=== PATIENT | female | born 1945 | race Caucasian/White ===

== ENCOUNTER → 2018-08-31 11:34 | Outpatient (CLI) | payer OTHER, SELFPAY ==
--- NOTE | 2018-08-31 | DI.MG.S_ITS ---
BILATERAL DIGITAL SCREENING MAMMOGRAM 3D/2D WITH CAD: 08/31/2018 CLINICAL: Routine screening. Comparison is made to exams dated: 09/03/2017 mammogram, 08/22/2017 mammogram, and 07/15/2016 mammogram - [facility]. There are scattered fibroglandular elements in both breasts. Current study was also evaluated with a Computer Aided Detection (CAD) system. No significant masses, calcifications, or other findings are seen in either breast. There has been no significant interval change. IMPRESSION: NEGATIVE There is no mammographic evidence of malignancy. A 1 year screening mammogram is recommended. This exam was interpreted at Station ID: [id number]. NOTE: For mammograms, a report in lay terms will be sent to the patient. Approximately 15% of breast malignancies will not be visualized mammographically. In the management of a palpable breast mass, a negative mammogram must not discourage biopsy of a clinically suspicious lesion. Electronically Signed By: Ino thompson/wolf:09/01/2018 09:52:06 letter sent: Normal Exam ACR BI-RADS Category 1: Negative 3341F
== END ==
PROVIDERS: PCP Family Medicine; Visit Provider Family Medicine
DX: Z12.31 Encounter for screening mammogram for malignant neoplasm of breast (principal)
CPT/HCPCS: 77063; 77067

== ENCOUNTER → 2019-09-16 08:16 | Outpatient (CLI) | payer OTHER, SELFPAY ==
--- NOTE | 2019-09-16 | DI.MG.S_ITS ---
BILATERAL DIGITAL SCREENING MAMMOGRAM 3D/2D WITH CAD: 09/16/2019 CLINICAL: Routine screening. Comparison is made to exams dated: 08/31/2018 mammogram, 08/22/2017 mammogram, 07/15/2016 mammogram - [facility], 01/26/2011 mammogram - [facility], 07/03/2015 mammogram, and 09/03/2017 mammogram - [facility]. There are scattered fibroglandular elements in both breasts. Current study was also evaluated with a Computer Aided Detection (CAD) system. There is a mole marker on both breasts. No significant masses, calcifications, or other findings are seen in either breast. There has been no significant interval change. IMPRESSION: NEGATIVE There is no mammographic evidence of malignancy. A 1 year screening mammogram is recommended. This exam was interpreted at Station ID: [id number]. NOTE: For mammograms, a report in lay terms will be sent to the patient. Approximately 15% of breast malignancies will not be visualized mammographically. In the management of a palpable breast mass, a negative mammogram must not discourage biopsy of a clinically suspicious lesion. Electronically Signed By: Ino thompson/wolf:09/16/2019 16:23:07 letter sent: Normal Exam ACR BI-RADS Category 1: Negative 3341F
== END ==
PROVIDERS: PCP Family Medicine; Visit Provider Family Medicine
DX: Z12.31 Encounter for screening mammogram for malignant neoplasm of breast (principal)
CPT/HCPCS: 77063; 77067

== ENCOUNTER → 2020-03-29 09:53 | Outpatient (CLI) | payer MEDICARE, SELFPAY ==
[2020-03-29 11:39] LABS: Cholesterol 185 mg/dL (140-199); Glucose 90 mg/dL (80-110); HDL Cholesterol 69 mg/dL (40-60); LDL Cholesterol Calculated 107 mg/dL (<100); Triglycerides 43 mg/dL (35-150)
== END ==
PROVIDERS: PCP Family Medicine; Referring Provider Family Medicine; Visit Provider Family Medicine
DX: Z13.220 Encounter for screening for lipoid disorders (principal); Z13.1 Encounter for screening for diabetes mellitus
CPT/HCPCS: 36415; 80061; 82947

== ENCOUNTER → 2020-09-23 10:31 | Outpatient (CLI) | payer MEDICARE, SELFPAY ==
--- NOTE | 2020-09-23 | DI.MG.S_ITS ---
BILATERAL DIGITAL SCREENING MAMMOGRAM 3D/2D WITH CAD: 09/23/2020 CLINICAL: Routine screening. Comparison is made to exams dated: 09/16/2019 mammogram, 08/31/2018 mammogram, and 08/22/2017 mammogram - [facility]. There are scattered fibroglandular elements in both breasts. Current study was also evaluated with a Computer Aided Detection (CAD) system. No significant masses, calcifications, or other findings are seen in either breast. There has been no significant interval change. IMPRESSION: NEGATIVE There is no mammographic evidence of malignancy. A 1 year screening mammogram is recommended. This exam was interpreted at Station ID: [id number]. NOTE: For mammograms, a report in lay terms will be sent to the patient. Approximately 15% of breast malignancies will not be visualized mammographically. In the management of a palpable breast mass, a negative mammogram must not discourage biopsy of a clinically suspicious lesion. Electronically Signed By: Rusty pena/wolf:09/25/2020 13:45:04 letter sent: Normal Exam ACR BI-RADS Category 1: Negative 3341F
== END ==
PROVIDERS: PCP Family Medicine; Referring Provider Family Medicine; Visit Provider Family Medicine
DX: Z12.31 Encounter for screening mammogram for malignant neoplasm of breast (principal)
CPT/HCPCS: 77063; 77067

== ENCOUNTER → 2021-10-20 09:58 | Outpatient (CLI) | payer MEDICARE, SELFPAY ==
--- NOTE | 2021-10-20 10:19 | DI.MG.S_ITS ---
Procedure: MM screening mammo BI BILATERAL DIGITAL SCREENING MAMMOGRAM 3D/2D WITH CAD: 10/20/2021 CLINICAL: Routine screening. Comparison is made to exams dated: 09/23/2020 mammogram, 09/16/2019 mammogram, and 08/31/2018 mammogram - [facility]. There are scattered fibroglandular elements in both breasts. Current study was also evaluated with a Computer Aided Detection (CAD) system. No significant masses, calcifications, or other findings are seen in either breast. There has been no significant interval change. IMPRESSION: NEGATIVE There is no mammographic evidence of malignancy. A 1 year screening mammogram is recommended. This exam was interpreted at Station ID: [id number]. NOTE: For mammograms, a report in lay terms will be sent to the patient. Approximately 15% of breast malignancies will not be visualized mammographically. In the management of a palpable breast mass, a negative mammogram must not discourage biopsy of a clinically suspicious lesion. Electronically Signed By: Rusty pena/wolf:10/22/2021 09:38:20 letter sent: Normal Exam ACR BI-RADS Category 1: Negative 3341F
== END ==
PROVIDERS: PCP Family Medicine; Referring Provider Family Medicine; Visit Provider Family Medicine
DX: Z12.31 Encounter for screening mammogram for malignant neoplasm of breast (principal)
CPT/HCPCS: 77063; 77067

== ENCOUNTER → 2022-04-06 12:00 | Outpatient (CLI) | payer MEDICARE, SELFPAY | PROVIDERS: PCP Family Medicine; Visit Provider Physician Assistant | DX: N39.0 Urinary tract infection, site not specified (principal) | CPT/HCPCS: 87077; 87086; 87186 ==

== ENCOUNTER 2022-04-15 14:26 | Emergency (ER) | payer MEDICARE, SELFPAY ==
[2022-04-15] VITALS (8 sets, daily range): BP systolic 153–187; BP diastolic 58–87; PULSE 74–86; RESP 16–30; TEMP 36.9; O2SAT 97–100; BMI 22.8
--- NOTE | 2022-04-15 15:07 | DI.CT.S_ITS ---
PROCEDURE: CT HEAD/BRAIN WO CON INDICATIONS: fall TECHNIQUE: Noncontrast 4.5 mm thick angled axial sections acquired from the foramen magnum to the vertex, with coronal and sagittal reformats. For radiation dose reduction, the following was used: automated exposure control, adjustment of mA and/or kV according to patient size. COMPARISON: [facility], CT, CT CERVICAL SPINE WO CON, 04/15/2022, 15:32. FINDINGS: Image quality: Excellent. CSF spaces: Basal cisterns are patent. No extra-axial fluid collections. Ventricles are normal in size and shape. Brain: No midline shift. No intracranial masses or hemorrhage. No area of hypodensity in a large vascular distribution to suggest acute infarction. Periventricular hypodensity consistent with chronic microvascular ischemic change. Age-related parenchymal loss. Skull and face: Calvarium and visualized facial bones are intact, without suspicious lesions. Sinuses: Visualized sinuses and mastoids are clear. IMPRESSION: No acute intracranial abnormality. Dictated by: Chirag Solares M.D. on 04/15/2022 at 16:00 Approved by: Chirag Solares M.D. on 04/15/2022 at 16:03
--- NOTE | 2022-04-15 15:11 | DI.CT.S_ITS ---
PROCEDURE: CT CERVICAL SPINE WO CON INDICATIONS: fall TECHNIQUE: Noncontrast 3 mm thick sections acquired from the skull base to the T4 level. Sagittal and coronal reformats were then constructed. For radiation dose reduction, the following was used: automated exposure control, adjustment of mA and/or kV according to patient size. COMPARISON: None. FINDINGS: Image quality: Fair. Motion artifact. Bones: Possible upper sternal fracture partially visualized, (5/55). Minimal vertebral body height loss at T1. No dislocations. Multilevel loss of intervertebral disc space height. Small vertebral body osteophytes. Visualized superior ribs are intact. Soft tissues: Prevertebral soft tissues are normal in thickness. No paravertebral hematomas. No apical pneumothoraces. Mild biapical opacity. Mild carotid bulb atherosclerotic calcifications. Moderate aortic arch calcifications. IMPRESSION: 1. Minimal height loss at T1. Indeterminate chronicity. 2. Suspect fracture at the upper sternum partially visualized. Recommend a CT chest for further evaluation if clinically indicated. 3. Mild biapical opacity. This could be due to pleural apical scarring or infectious/inflammatory process such as pneumonia. Dictated by: Chirag Solares M.D. on 04/15/2022 at 16:03 Approved by: Chirag Solares M.D. on 04/15/2022 at 16:10
--- NOTE | 2022-04-15 16:24 | DI.CT.S_ITS ---
PROCEDURE: CT CHEST WO CON INDICATIONS: fall. fx sternum suspected TECHNIQUE: Noncontrast 5 mm thick sections acquired from the pulmonary apices to the posterior costophrenic angles. 1 mm lung window, 5 mm thick coronal and sagittal and 7 mm axial MIP reformats were then acquired. For radiation dose reduction, the following was used: automated exposure control, adjustment of mA and/or kV according to patient size. COMPARISON: None. FINDINGS: Image quality: Excellent. Lungs and pleura: Consolidation or atelectasis is present at the left lung base. There is scarring at the bilateral apices. No pleural effusion or pneumothorax. Mediastinum: Heart size is normal. No pericardial effusion. No mediastinal adenopathy by size criteria. Thoracic aorta and central pulmonary arteries are normal in size. Scattered atheromatous calcifications are present within the aortic arch. . Esophagus is normal in caliber. No hiatal hernia. Bones and chest wall: There is a comminuted fracture through the superior aspect of the sternum. No retrosternal hematoma. Superior endplate depression is present at T1 and T3. No other vertebral body compression fractures. No axillary or supraclavicular adenopathy by size criteria. Thyroid gland is unremarkable . Abdomen: Visualized upper abdominal solid organs and bowel loops appear normal in the absence of contrast. IMPRESSION: 1. Comminuted displaced sternal fracture. No retrosternal hematoma. 2. Consolidation at the left lung base which may represent atelectasis, aspiration, or infection. Short interval follow-up is recommended to exclude underlying neoplasm. 3. Superior endplate compression deformities at T1 and T3. The acuity of these deformities are unknown without prior comparison. If there is high clinical suspicion for acute fracture and further characterization is warranted, MRI of this region could be used to evaluate for marrow edema in the acute or subacute setting. Dictated by: Jordana Bliss M.D. on 04/15/2022 at 16:43 Approved by: Jordana Bliss M.D. on 04/15/2022 at 16:47
--- NOTE | 2022-04-15 16:25 | PC.NURSE ---
Dr. Garcia cleared c-spine
[2022-04-15 17:39] LABS: Add Manual Diff / Slide Review NO; Basophils Absolute Auto 0 /uL (0-100); Basophils Percent Auto 0.5 % (0-2); Eosinophils Absolute Auto 100 /uL (0-450); Eosinophils Percent Auto 1.2 % (2-4); Hematocrit 38.9 % (36-46); Hemoglobin 13.3 g/dL (12.0-16.0); Lymphocytes Absolute Auto 1100 /uL (1100-4500); Lymphocytes Percent Auto 18.3 % (25-40); Mean Corpuscular HGB Conc 34.1 % (30-36); Mean Corpuscular Hemoglobin 31.7 PG (26-34); Mean Corpuscular Volume 93.1 fL (80-100); Monocytes Absolute Auto 800 /uL (0-900); Monocytes Percent Auto 13.5 % (3-14); Neutrophils Absolute Auto 4100 /uL (1500-7000); Neutrophils Percent Auto 66.5 % (50-75); Platelet Count 200 X10^3/uL (150-400); Red Blood Cell Count 4.18 X10^6/uL (4.0-5.2); Red Cell Distribution Width 13.7 % (11.6-14.8); White Blood Cell Count 6.2 X10^3/uL (4.5-11.0)
[2022-04-15 17:44] LABS: Alanine Aminotransferase 39 IU/L (<35); Albumin 4.3 g/dL (3.5-5.0); Albumin Globulin Ratio 1.5 (1.0-2.8); Alkaline Phosphatase 73 U/L (38-126); Aspartate Aminotransferase 62 IU/L (14-36); BUN Creatinine Ratio 38.6 (6-22); Bilirubin Total 0.7 mg/dL (0.2-1.3); Blood Urea Nitrogen 22 mg/dL (7-17); Calcium 9.6 mg/dL (8.4-10.2); Carbon Dioxide 26 mmol/L (22-32); Chloride 105 mmol/L (98-107); Creatine Kinase 401 U/L (30-135); Estimated Glomerular Filt Rate > 60 mL/min (>60); Globulin 2.8 g/dL (1.7-4.1); Glucose 100 mg/dL (80-110); HEMOLYSIS < 15 (0-50); Lipase 38 U/L (23-300); Sodium 136 mmol/L (137-145); Total Protein 7.1 g/dL (6.3-8.2)
[2022-04-15 17:57] LABS: Troponin I < 0.012 ng/mL (0.01-0.034)
[2022-04-15 17:59] LABS: CKMB % Relative Index 0.6 % (1.5-5.0); Creatine Kinase MB 2.39 ng/mL (<2.37)
--- NOTE | 2022-04-15 18:35 | ED_ITS ---
HPI - Fall General Chief Complaint: Fall Stated Complaint: BACK PAIN PT. FELL FLIGHT OF STAIRS Time Seen by Provider: 04/15/22 16:27 Source: patient Mode of arrival: Ambulatory Limitations: no limitations History of Present Illness HPI Narrative: This is a 76-year-old female comes emergency department who is on medication for cholesterol and hypertension. No anticoagulants. Patient states on Friday, April 12 she was walking down the stairs of her friend's boat which has a large circular staircase tripped and fell down 3 stairs onto a landing and fell down 2 more stairs onto an additional landing striking her chest on the railing. Patient states she thinks she also twisted and hit her head and neck on the wall. Patient states she spent the next 2 days in bed. She states she did not have any loss of consciousness she was stunned immediately afterwards. She had some nausea but no vomiting she has some pain in her lower neck, she has quite a bit of pain in her sternum which he states has gotten better but is still quite intense with any kind of movement. She denies any pelvic, leg or lower extre mity injuries or injuries to her upper extremities. She states it is painful to take a deep breath. She has not been coughing anything up. She denies any vomiting. No GI or urinary symptoms otherwise. No numbness, tingling or weakness. Patient has been taking ibuprofen with minimal improvement. She is had her appendix removed. Denies other surgeries. Patient has had pneumonia as a child about 15 years ago as it was noted there was some opacification on her chest CT. No tobacco, she has an alcoholic drink most nights, no illicit. Her primary care is Dr. Villegas. Related Data Home Medications Medication Instructions Recorded Confirmed Fish Oil ##0 08/07/16 04/27/21 VITAMIN D (Vitamin D2) ##0 08/07/16 04/27/21 Previous Rx's Medication Instructions Recorded simvastatin 40 mg tablet See Rx Instructions .Route 02/05/22 .COMPLEX #90 tabs hydrocodone 5 mg-acetaminophen 325 1 tab PO QID PRN pain #20 tabs 04/15/22 mg tablet Allergies Allergy/AdvReac Type Severity Reaction Status Date / Time No Known Drug Allergies Allergy Verified 04/15/22 15:06 Review of Systems Review of Systems ROS Unobtainable: All systems reviewed & are unremarkable except as noted in HPI and below Patient History Medical History Cataract Chicken pox (~1950) Hyperlipidemia Measles (~1949) Mumps (~1951) Pectus excavatum (09/1954) Pure hypercholesterolemia Surgical History Anesthesia History of colonoscopy (03/24/13) History of left cataract surgery (08/19/14) History of left inguinal hernia repair (09/1995) History of orthopedic surgery (2000) History of right cataract surgery (08/31/14) History of right inguinal hernia repair (09/2011) History of surgery (09/1954) History of umbilical hernia repair (02/2010) Status post appendectomy (02/05/03) Status post tonsillectomy and adenoidectomy (09/1944) Family History Father High cholesterol Lung cancer Cancer Mother Age: 97 Dementia Hypertension High cholesterol Grandfather Heart attack Sister Age: 73 High cholesterol Sister Age: 71 High cholesterol Sister Age: 70 High cholesterol Sister Age: 64 High cholesterol Grandmother Dementia Grandfather Heart attack Grandmother Cancer Pancreatic cancer Social History marital status: number of children: 2 household members: spouse lives independently: Yes caregiver/support person: No housing: house Smoking Status: Former smoker second hand exposure: No alcohol intake: current substance use type: does not use Smoking Status: Former smoker alcohol intake frequency: 0-2 drinks per day Alcohol type: wine Substance Use Type: does not use Exam Narrative Exam Narrative: GEN: Patient appears in mild distress. HEAD: No evidence of trauma, no raccoon/Daugherty sign. NECK: Nontender, painless range of motion, trachea midline Negative Nexus criteria, there is no midline line tenderness, no distracting injury, no altered mental status, neuro deficit, recent EtOH. EYES: PERRLA, EOMI ENT: External inspection normal, trachea is midline, TM's are normal no hemotypanum, Nares are clear, no septal hematoma, no dental or oral injury, airway is normal and with normal occlusion, No bony tenderness RESP: Chest is tender anteriorly, no ecchymosis, no obvious deformity but patient does appear slightly swollen and has symmetric movement, no ecchymosis, breath sounds are normal no crackles, wheezes or rales CVS: Heart sounds are normal, no murmur noted, No JVD. ABG/GI: Nontender, soft, normal bowel sounds, no distention, no organomegaly, pelvic rock is negative NEURO: Oriented AOx3, neuro is grossly intact, sensation and motor is normal all 4 extremities moving, cranial nerves II through XII are intact, GCS is 15 PSYCH: Normal mood and affect SKIN: Intact, warm and dry, no crepitus and without decubitus BACK: No CVA tenderness, no vertebral tenderness, no step-off's, no crepitus EXT: Atraumatic, hips are nontender, no pedal edema, normal color and temperature, normal range of motion of extremities with normal tendon exam, 2+ pulses in all four extremities Initial Vital Signs Initial Vital Signs: Vital Signs Temperature 98.4 F 04/15/22 15:01 Pulse Rate 86 04/15/22 15:01 Respiratory Rate 16 04/15/22 15:01 Blood Pressure 158/68 H 04/15/22 15:01 Pulse Oximetry 97 04/15/22 15:01 Oxygen Delivery Method 04/15/22 15:01 Scores GCS [place] coma scale eye opening: Spontaneous [place] coma scale verbal response: Orientated [place] coma scale motor response: Obey commands Matt coma scale total score: 15 Course Orders Ordered: ED Orders 04/15/22 15:07 CT head/brain wo con Stat 04/15/22 15:11 CT cervical spine wo con Stat 04/15/22 16:24 CT chest wo con Stat 04/15/22 16:36 EKG-12 Lead Stat 04/15/22 16:55 Complete Blood Count AUTO DIFF Stat Comprehensive Metabolic Panel Stat Lipase Stat Troponin & CK Cardiac Panel Stat Vital Signs Vital signs: Vital Signs - 8 hr 04/15/22 15:01 04/15/22 16:46 04/15/22 16:46 Temperature 98.4 F Pulse Rate 86 75 Respiratory Rate 16 20 Blood Pressure 158/68 H 180/79 H Pulse Oximetry 97 100 Oxygen Delivery Method Room Air 04/15/22 17:00 04/15/22 17:00 04/15/22 17:30 Temperature Pulse Rate 74 Respiratory Rate 16 Blood Pressure 163/58 H 153/70 H Pulse Oximetry 98 Oxygen Delivery Method 04/15/22 17:30 04/15/22 18:00 Temperature Pulse Rate 76 86 Respiratory Rate 16 20 Blood Pressure Pulse Oximetry 99 98 Oxygen Delivery Method - Fall Lab Data Result diagrams: 04/15/22 16:55 04/15/22 16:55 Labs: Lab Results 04/15/22 04/15/22 Range/Units 16:55 16:55 WBC 6.2 (4.5-11.0) X10^3/uL RBC 4.18 (4.0-5.2) X10^6/uL Hgb 13.3 (12.0-16.0) g/dL Hct 38.9 (36-46) % MCV 93.1 (80-100) fL MCH 31.7 (26-34) PG MCHC 34.1 (30-36) % RDW 13.7 (11.6-14.8) % Plt Count 200 (150-400) X10^3/uL Neut % (Auto) 66.5 (50-75) % Lymph % (Auto) 18.3 L (25-40) % [place] % (Auto) 13.5 (3-14) % Eos % (Auto) 1.2 L (2-4) % Baso % (Auto) 0.5 (0-2) % Neut # (Auto) 4100 (7199-5236) /uL Lymph # (Auto) 1100 (7526-6818) /uL [place] # (Auto) 800 (0-900) /uL Eos # (Auto) 100 (0-450) /uL Baso # (Auto) 0 (0-100) /uL Sodium 136 L (137-145) mmol/L Potassium 4.0 (3.4-5.1) mmol/L Chloride 105 (98-107) mmol/L Carbon Dioxide 26 (22-32) mmol/L BUN 22 H (7-17) mg/dL Creatinine 0.57 (0.52-1.04) mg/dL Estimated GFR > 60 (>60) mL/min BUN/Creatinine Ratio 38.6 H (6-22) Glucose 100 (80-110) mg/dL Calcium 9.6 (8.4-10.2) mg/dL Total Bilirubin 0.7 (0.2-1.3) mg/dL AST 62 H (14-36) IU/L ALT 39 H (<35) IU/L Alkaline Phosphatase 73 (38-126) U/L Total Creatine Kinase 401 H (30-135) U/L CK-MB (CK-2) 2.39 H (<2.37) ng/mL CK-MB (CK-2) Rel Index 0.6 L (1.5-5.0) % Troponin I < 0.012 (0.01-0.034) ng/mL Total Protein 7.1 (6.3-8.2) g/dL Albumin 4.3 (3.5-5.0) g/dL Globulin 2.8 (1.7-4.1) g/dL Albumin/Globulin Ratio 1.5 (1.0-2.8) Lipase 38 (23-300) U/L Imaging Data CT scan - head: Radiologist's Impression: Close Chest CT (Signed) Jordana Bliss - 04/15/[address] (Signed) Call,Chirag - 04/15/[address] (Signed) Call,Chirag - 04/15/22 Mammogram Screening (Signed) Rusty Pedersen - 10/20/21 Mammogram Screening (Signed) Rusty Pedersen - 09/23/20 Mammogram Screening (Signed) Ino De La Paz - 09/16/19 Mammogram Screening (Signed) Ino De La Paz - 08/31/18 Launch?[place] [address] CT Scan Report Signed Patient: Carrie Perry MR#: [id number] : 1945 Acct:[id number] Age/Sex: 76 / F Date of Service: 04/15/22 Loc: ED Accession Number: [id number] ?? Procedure: CT head/brain wo con Ordering Provider: Lidia Garcia D.O. PROCEDURE:? CT HEAD/BRAIN WO CON ? INDICATIONS:? fall ? TECHNIQUE:? Noncontrast 4.5 mm thick angled axial sections acquired from the foramen magnum to the vertex, with coronal and sagittal reformats.? For radiation dose reduction, the following was used:? automated exposure control, adjustment of mA and/or kV according to patient size.? ? COMPARISON:? [facility], CT, CT CERVICAL SPINE WO CON, 04/15/2022, 15:32. ? FINDINGS:? Image quality:? Excellent.? ? CSF spaces:? Basal cisterns are patent.? No extra-axial fluid collections.? Ventricles are normal in size and shape.? ? Brain:? No midline shift.? No intracranial masses or hemorrhage.? No area of hypodensity in a large vascular distribution to suggest acute infarction. Periventricular hypodensity consistent with chronic microvascular ischemic change. Age-related parenchymal loss. ? Skull and face:? Calvarium and visualized facial bones are intact, without suspicious lesions.? ? Sinuses:? Visualized sinuses and mastoids are clear.? ? IMPRESSION:? No acute intracranial abnormality. ? ? Dictated by: Chirag Solares M.D. on 04/15/2022 at 16:00 ? ? Approved by: Chirag Solares M.D. on 04/15/2022 at 16:03?? CT - cervical spine: Radiologist's Impression: Close Chest CT (Signed) Jordana Bliss - 04/15/[address] (Signed) Call,Chirag - 04/15/[address] (Signed) Call,Chirag - 04/15/22 Mammogram Screening (Signed) Rusty Pedersen - 10/20/21 Mammogram Screening (Signed) Rusty Pedersen - 09/23/20 Mammogram Screening (Signed) Ino De La Paz - 09/16/19 Mammogram Screening (Signed) Ino De La Paz - 08/31/18 Launch?[place] [address] CT Scan Report Signed Patient: Carrie Perry MR#: [id number] : 1945 Acct:[id number] Age/Sex: 76 / F Date of Service: 04/15/22 Loc: Accession Number: [id number] ?? Procedure: CT cervical spine wo con Ordering Provider: Lidia Garcia D.O. PROCEDURE:? CT CERVICAL SPINE WO CON ? INDICATIONS:? fall ? TECHNIQUE:? Noncontrast 3 mm thick sections acquired from the skull base to the T4 level.? Sagittal and coronal reformats were then constructed.? For radiation dose reduction, the following was used:? automated exposure control, adjustment of mA and/or kV according to patient size.? ? COMPARISON:? None. ? FINDINGS:? Image quality:? Fair.? Motion artifact.? ? Bones:? Possible upper sternal fracture partially visualized, ().? Minimal vertebral body height loss at T1.? No dislocations.? Multilevel loss of intervertebral disc space height.? Small vertebral body osteophytes.? Visualized superior ribs are intact.? ? Soft tissues:? Prevertebral soft tissues are normal in thickness.? No pa ravertebral hematomas.? No apical pneumothoraces.? Mild biapical opacity.? Mild carotid bulb atherosclerotic calcifications.? Moderate aortic arch calcifications.? ? ? IMPRESSION:? 1. Minimal height loss at T1.? Indeterminate chronicity.? ? 2. Suspect fracture at the upper sternum partially visualized.? Recommend a CT chest for further evaluation if clinically indicated. ? 3. Mild biapical opacity.? This could be due to pleural apical scarring or infectious/inflammatory process such as pneumonia. ? ? ? Dictated by: Chirag Solares M.D. on 04/15/2022 at 16:03 ? ? Approved by: Chirag Solares M.D. on 04/15/2022 at 16:10?? CT scan - chest: Radiologist's Impression: Close Chest CT (Signed) Jordana Bliss - 04/15/[address] (Signed) Chirag Solares - 04/15/[address] (Signed) Chirag Solares - 04/15/22 Mammogram Screening (Signed) Rusty Pedersen - 10/20/21 Mammogram Screening (Signed) Rusty Pedersen - 09/23/20 Mammogram Screening (Signed) Ino De La Paz - 09/16/19 Mammogram Screening (Signed) Ino De La Paz - 08/31/18 Launch?[address] [address] [address] Scan Report Signed Patient: Carrie Perry MR#: [id number] : 1945 Acct:[id number] Age/Sex: 76 / F Date of Service: 04/15/22 Loc: ED Accession Number: [id number] ?? Procedure: CT chest wo con Ordering Provider: Lidia Garcia D.O. PROCEDURE:? CT CHEST WO CON ? INDICATIONS:? fall. fx sternum suspected ? TECHNIQUE: Noncontrast 5 mm thick sections acquired from the pulmonary apices to the posterior costophrenic angles.? 1 mm lung window, 5 mm thick coronal and sagittal and 7 mm axial MIP reformats were then acquired.? For radiation dose reduction, the following was used:? automated exposure control, adjustment of mA and/or kV according to patient size.? ? COMPARISON:? None. ? FINDINGS:? Image quality:? Excellent.? ? Lungs and pleura:? Consolidation or atelectasis is present at the left lung base.? There is scarring at the bilateral apices.? No pleural effusion or pneumothorax. ? Mediastinum:? Heart size is normal.? No pericardial effusion.? No mediastinal adenopathy by size criteria.? Thoracic aorta and central pulmonary arteries are normal in size. Scattered atheromatous calcifications are present within the aortic arch. .? Esophagus is normal in caliber.? No hiatal hernia.? ? Bones and chest wall:? There is a comminuted fracture through the superior aspect of the sternum.? No retrosternal hematoma.? Superior endplate depression is present at T1 and T3.? No other vertebral body compression fractures.? No axillary or supraclavicular adenopathy by size criteria.? Thyroid gland is unremarkable .? ? Abdomen:? Visualized upper abdominal solid organs and bowel loops appear normal in the absence of contrast.? ? IMPRESSION:? ? 1. Comminuted displaced sternal fracture.? No retrosternal hematoma. ? 2. Consolidation at the left lung base which may represent atelectasis, aspiration, or infection.? Short interval follow-up is recommended to exclude underlying neoplasm. ? 3. Superior endplate compression deformities at T1 and T3.? The acuity of these deformities are unknown without prior comparison.? If there is high clinical suspicion for acute fracture and further characterization is warranted, MRI of this region could be used to evaluate for marrow edema in the acute or subacute setting.? ? ? Dictated by: Jordana Bliss M.D. on 04/15/2022 at 16:43 ? ? Approved by: Jordana Bliss M.D. on 04/15/2022 at 16:47?? ECG Data Attestation: I personally reviewed and interpreted this ECG as follows: Interpretation: NSR rate of 76, pr of 134, qrs 102, Qtc 436. Patient does not have any priors for comparison. MDM Narrative Medical decision making narrative: This is a 76-year-old female with a fall down stairs approximately 5-7 stairs or steps that landed on her sternum over the railing and hit her head and neck. This was [address] C-spine are negative and patient does not have any red flag symptoms or findings on her exam, she is quite tender in her sternum CT chest does show sternal fracture. She has been ambulating and improving in terms of pain but still quite tender since then. Patient is not on any anticoagulants. Plan for incentive spirometer, prescription for pain management which patient requests be sent to a mail service and follow-up with primary care for recheck. Discharge Plan Departure Patient Disposition: Home Clinical Impression: Sternal fracture, Closed compression fracture of thoracic vertebra, Fall Instructions: DI for Sternum Fracture Activity Restrictions/Additional Instructions: Follow up with your physician for recheck. You were found to have a sternal fracture today this will likely take 2-3 months to fully heal please follow-up with Dr. Villegas in the interim for recheck. You also have a compression fracture at T1 and T3. There is some possible scarring on your CT in the upper chest, please follow-up with your physician and discuss this they may repeat imaging in the next couple months if felt necessary. Please use incentive spirometer hourly while awake for the next month. As your pain resolves you do not have to use this as frequently. You can take ibuprofen up to 600 mg every 6 hours as needed and/or Tylenol up to a 1000 mg every 6 hours as needed for pain. If inadequate for your pain you can take [place] 1-2 tablets every 6 hours instead of Tylenol for pain. Your maximum amount of Tylenol or acetaminophen in 24 hours is 4000 mg. This medication can make you sleepy do not drive, perform hazardous activities or make any major decisions while taking it. This medication will make you cons tipated please take a stool softener once to twice daily until stools are soft and regular. Prescription sent to [facility] mail service. Please return for worsening chest pain, increasing shortness of breath, persistent vomiting, severe headaches, new numbness, tingling or weakness or rapidly worsening back or neck pain, passing out or other new or concerning symptoms. Prescriptions: New hydrocodone-acetaminophen 5-325 mg tablet 1 tab PO QID PRN (Reason: pain) Qty: 20 0RF No Action Fish Oil Qty: 0 VITAMIN D (Vitamin D2) Qty: 0 simvastatin 40 mg tablet See Rx Instructions .ROUTE .COMPLEX Qty: 90 0RF Dose Instruction: TAKE 1 TABLET BY MOUTH AT BEDTIME Rx Instructions: TAKE 1 TABLET BY MOUTH AT BEDTIME. Please make an appt with Dr. Villegas for March or April Referrals: Yandy Villegas MD [Primary Care Provider] - Visit Report Forms: Patient Portal/API
--- NOTE | 2022-04-15 19:09 | RT ---
PT INSTRUCTED ON PROPER I.S. USE FOR USE AT HOME.
--- NOTE | 2022-04-15 19:20 | PC.NURSE ---
Irving CHAVES and Santi instructed on IS use.
== END 2022-04-15 19:35 | disposition home or self-care (01) ==
PROVIDERS: Emergency Medicine; Emergency Provider Emergency Medicine; PCP Family Medicine
DX: S22.20XA Unspecified fracture of sternum, initial encounter for closed fracture (principal); S22.019A Unspecified fracture of first thoracic vertebra, initial encounter for closed fracture; S22.039A Unspecified fracture of third thoracic vertebra, initial encounter for closed fracture; W10.9XXA Fall (on) (from) unspecified stairs and steps, initial encounter; I10 Essential (primary) hypertension
CPT/HCPCS: 36415; 70450; 71250; 72125; 80053; 82550; 82553; 83690; 84484; 85025; 93005; 93010; 99283; 99284

== ENCOUNTER → 2022-07-22 11:36 | Outpatient (CLI) | payer MEDICARE, SELFPAY ==
[2022-07-22 12:49] LABS: Alanine Aminotransferase 26 IU/L (<35); Albumin 4.3 g/dL (3.5-5.0); Albumin Globulin Ratio 1.6 (1.0-2.8); Alkaline Phosphatase 60 U/L (38-126); Aspartate Aminotransferase 32 IU/L (14-36); BUN Creatinine Ratio 31.8 (6-22); Bilirubin Total 0.8 mg/dL (0.2-1.3); Blood Urea Nitrogen 21 mg/dL (7-17); Calcium 9.6 mg/dL (8.4-10.2); Carbon Dioxide 26 mmol/L (22-32); Chloride 103 mmol/L (98-107); Cholesterol 179 mg/dL (140-199); Estimated Glomerular Filt Rate > 60 mL/min (>60); Globulin 2.7 g/dL (1.7-4.1); Glucose 96 mg/dL (80-110); HDL Cholesterol 64 mg/dL (40-60); HEMOLYSIS < 15 (0-50); LDL Cholesterol Calculated 103 mg/dL (<100); Potassium 4.1 mmol/L (3.4-5.1); Sodium 139 mmol/L (137-145); Triglycerides 61 mg/dL (35-150)
== END ==
PROVIDERS: PCP Family Medicine; Referring Provider Family Medicine; Visit Provider Family Medicine
DX: E78.5 Hyperlipidemia, unspecified (principal)
CPT/HCPCS: 36415; 80053; 80061

== ENCOUNTER → 2022-07-29 10:08 | Outpatient (CLI) | payer MEDICARE, SELFPAY ==
--- NOTE | 2022-07-29 10:09 | DI.CT.S_ITS ---
PROCEDURE: CT CHEST WO CON INDICATIONS: T Spine Fracture/Follow Up Lung Consolidation TECHNIQUE: Noncontrast 5 mm thick sections acquired from the pulmonary apices to the posterior costophrenic angles. 1 mm lung window, 5 mm thick coronal and sagittal and 7 mm axial MIP reformats were then acquired. For radiation dose reduction, the following was used: automated exposure control, adjustment of mA and/or kV according to patient size. COMPARISON: [facility], CT, CT CERVICAL SPINE WO CON, 04/15/2022, 15:32. [facility], CT, CT CHEST WO CON, 04/15/2022, 16:32. FINDINGS: Image quality: Excellent Lungs and pleura: No new consolidation. No pleural effusion. Decreased consolidation at the left lung base. Multifocal scarring and nodularity particularly involving the lung apices appear stable. Mediastinum, heart, and esophagus: Nonspecific distal esophageal wall thickening. There are coronary calcifications. No pathologic adenopathy by size criteria. Chest wall and thyroid: Unremarkable Upper abdomen: Unremarkable on limited noncontrast evaluation Bones: Scattered degenerative changes. Sternal fracture with increased anterior displacement of the inferior fragment and sclerosis. No significant surrounding hematoma. Slightly progressed height loss of the L1, L2, and L3 vertebral bodies, now with increased sclerosis. IMPRESSION: Compared to March, progressive height loss of the L1, L2, and L3 vertebral bodies with increased sclerosis. There is also increased displacement sclerosis of the sternal fracture. If the patient has any history of primary malignancy, consider further imaging with bone scan or MRI. Nodularity and scarring in the lungs can be followed on subsequent imaging to ensure stability. Consider six-month follow-up. In the more remote imaging could also be helpful. Dictated by: Jalil Oliver M.D. on 07/29/2022 at 11:00 Approved by: Jalil Oliver M.D. on 07/29/2022 at 11:07
== END ==
PROVIDERS: PCP Family Medicine; Referring Provider Family Medicine; Visit Provider Family Medicine
DX: J18.1 Lobar pneumonia, unspecified organism (principal); S22.009A Unspecified fracture of unspecified thoracic vertebra, initial encounter for closed fracture; S22.20XG Unspecified fracture of sternum, subsequent encounter for fracture with delayed healing; M89.9 Disorder of bone, unspecified; X58.XXXD Exposure to other specified factors, subsequent encounter
CPT/HCPCS: 71250

== ENCOUNTER → 2022-08-14 12:45 | Outpatient (CLI) | payer MEDICARE, SELFPAY ==
--- NOTE | 2022-08-14 12:46 | DI.MRI.S_ITS ---
PROCEDURE: MR CERVICAL SPINE WO CON INDICATIONS: neck pain TECHNIQUE: Noncontrast sagittal T1 spin echo and T2 fast spin echo, sagittal STIR, foraminal oblique sagittal T2 fast spin echo, and axial gradient echo or T2 fast spin echo through the cervical spine. COMPARISON: None. FINDINGS: Image quality: This examination is limited by involuntary motion artifact. Alignment and Curvature: There is accentuated cervical lordosis seen. Mild grade 1 anterolisthesis is seen at C7-T1, with minimal anterolisthesis at T1-T2 and at T2-T3. Bone Marrow: Marrow demonstrates normal overall signal. There are remote appearing fracture seen. At T1, there is 30% loss of height anteriorly. At T2, there is 20-30% loss of height anteriorly. At T3, there is 20-30% loss of height centrally. Spinal Cord: Visualized spinal cord has normal size and signal. No cerebellar tonsillar herniation. Paraspinous Soft Tissues: No paravertebral masses. Prevertebral soft tissues are normal in thickness. C2-C3: No significant abnormality is seen. C3-C4: The disc height is well-preserved. Loss of disc signal is seen at this level. A mild degree of generalized disc osteophyte complex is seen. Moderate to prominent facet hypertrophy is seen. There is [id number] right-sided and mild left-sided neural foraminal narrowing. Mild central canal narrowing is seen. C4-C5: The disc height is well-preserved. Loss of disc signal is seen at this level. A mild degree of generalized disc osteophyte complex is seen. There is moderate to prominent right-sided and moderate left-sided facet hypertrophy. There is [id number] right-sided and no left-sided neural foraminal narrowing. Mild central canal narrowing is seen. C5-C6: Moderate loss of disc height is seen. Loss of disc signal is seen. Moderate generalized disc osteophyte complex is seen. At least moderate facet hypertrophy is seen. There is moderate to severe left-sided and mild right-sided neural foraminal narrowing. Mild to moderate central canal narrowing is seen, with associated ventral cord flattening. C6-C7: The disc height is well-preserved. Loss of disc signal is seen at this level. A mild degree of generalized disc osteophyte complex is seen. Moderate facet joint hypertrophy is seen. There is moderate right-sided and mild left-sided neural foraminal narrowing. Minimal central canal narrowing is seen. C7-T1: The disc height is well-preserved. Loss of disc signal is seen at this level. No significant neural foraminal or central canal narrowing can be seen. IMPRESSION: Multiple levels of cervical spine degenerative change are seen, which are overall worst at the C5-C6 level. Remote appearing deformities can be seen involving T1, T2, and T3. Dictated by: Jesus Pavon M.D. on 08/14/2022 at 14:36 Approved by: Jesus Pavon M.D. on 08/14/2022 at 14:42
== END ==
PROVIDERS: PCP Family Medicine; Referring Provider Family Medicine; Visit Provider Family Medicine
DX: M47.812 Spondylosis without myelopathy or radiculopathy, cervical region (principal); M54.2 Cervicalgia
CPT/HCPCS: 72141

== ENCOUNTER 2022-11-28 07:48 | Day surgery (SDC) | payer MEDICARE, SELFPAY ==
--- NOTE | 2022-11-28 | PATH_ITS ---
[facility] Accession Number: [id number] No. of containers..01 Tissue . 01 Material submitted: . rectum - RECTAL POLYP . 01 Diagnosis: Rectum, Polypectomy: Hyperplastic polyp. MRV 12/03/2022 1904 Local . 01 Electronically signed: . Rosamaria Wan MD, Pathologist NPI- [id number] . 01 Gross description: . RECTAL POLYP: Received in formalin is 1 fragment(s) of howe, soft tissue measuring 0.6 x 0.5 x 0.2 cm submitted entirely in 1 cassette(s) /CPE 11/30/2022 0631 Local . 01 Pathologist provided ICD-10: K62.1 . 01 CPT . 376293 Specimen Comment: A courtesy copy of this report has been sent to [phone] Performed at: 01 [facility] [address] [place] [address], [place], [place] [id number] MD Fredis Andre MD Phone: [phone]
[2022-11-28 08:05] VITALS: BMI 22.4
[2022-11-28 08:11] VITALS: BP 133/70; PULSE 91; RESP 16; TEMP 36.3; O2SAT 98
[2022-11-28] MEDS: LACTATED RINGERS 1,000 ML 42 ML IV (08:18)
--- NOTE | 2022-11-28 08:25 | PM.HP.1 ---
History of Present Illness History of Present Illness Date Patient Seen: 11/28/22 Time Patient Seen: 08:25 Chief complaint: SDC Narrative: Carrie is a 69-year-old woman who is due for colonoscopy. Her last 1 was 10 years ago was normal. She has no known family history colon cancer. She is hoping this could be her last colonoscopy. Patient History Medical History (Updated 11/28/22 @ 08:26 by Zafar Ross MD) Cataract Chicken pox (~1950) Hyperlipidemia Measles (~1950) Mumps (~1951) Pure hypercholesterolemia Surgical History (Updated 11/27/22 @ 09:43 by Yandy Villeags MD) Anesthesia History of colonoscopy (03/24/13) History of left cataract surgery (08/19/14) History of right cataract surgery (08/31/14) Status post appendectomy (02/05/03) Family & Social History Family History Father High cholesterol Lung cancer Cancer Mother Age: 97 Dementia Hypertension High cholesterol Grandfather Heart attack Sister Age: 73 High cholesterol Sister Age: 71 High cholesterol Sister Age: 70 High cholesterol Sister Age: 64 High cholesterol Grandmother Dementia Grandfather Heart attack Grandmother Cancer Pancreatic cancer Social History: household members spouse lives independently Yes caregiver/support person No Tobacco & Substance use: Smoking Status Former smoker alcohol intake current alcohol intake frequency 0-2 drinks per day Substance Use Type does not use Meds Home Medications and Allergies Home Medications Medication Instructions Recorded Confirmed Type cholecalciferol (vitamin D3) 50 50 mcg PO DAILY ##0 08/07/16 11/28/22 History mcg (2,000 unit) capsule (Vitamin D3) omega 7-ldt-aem-fish oil 1,000 mg 1 cap PO DAILY ##0 08/07/16 11/28/22 History (120 mg-180 mg) capsule (Fish Oil) simvastatin 40 mg tablet See Rx Instructions .Route 08/07/22 11/28/22 Rx .COMPLEX #90 tabs sodium,potassium,mag sulfates 17.5 See Rx Instructions PO .COMPLEX 11/25/22 11/28/22 Rx gram-3.13 gram-1.6 gram oral soln #354 mL (Suprep Bowel Prep Kit) Allergies Allergy/AdvReac Type Severity Reaction Status Date / Time No Known Drug Allergies Allergy Verified 11/28/22 08:03 Exam Vital Signs (past 8 hours): - 11/28/22 08:11 Temperature 97.3 F L Pulse Rate 91 H Respiratory Rate 16 Blood Pressure 133/70 Pulse Oximetry 98 Oxygen Delivery Method Room Air Oxygen Delivery Method Room Air Const General: healthy appearing Resp Effort & Inspection: normal respiratory effort Assessment & Plan Assessment and plan (1) Colon cancer screening: Status: Acute Plan We reviewed the risks and benefits of colon cancer screening and she would like to proceed. Hopefully this can be her last colonoscopy. Time Spent With Patient Critical Care time: I spent a total of [] minutes of critical care time on this patient's care today; this time is exclusive of procedural time.
--- NOTE | 2022-11-28 09:41 | P.OP.COLON_ITS ---
Operative Date/Time/Diagnoses Date of procedure: 11/28/22 Time of procedure: 09:41 Pre-op diagnosis: Colon cancer screening Post-op diagnosis: same Procedure & Clinicians Study performed: Colonoscopy Same procedure as scheduled: Yes Surgeon: Zafar Ross Procedure Notes Procedure in detail: Surgeon: Zafar Ross MD Anesthesia: Merary Jason AUTOMOTIVE PARTS COORDINATOR Procedure: The patient was brought to the endoscopy suite, placed in left lateral decubitus position. The patient was connected to monitoring devices. A time-out was performed. Sedation was administered. Once the patient was adequately sedated, a digital rectal exam was performed and was normal. The scope was then inserted and advanced to the cecum where the appendiceal orifice was identified and photographed. The scope was then slowly withdrawn over greater than 6 minutes. The mucosa was thoroughly inspected. There was a 5 mm polyp in the mid rectum removed with a cold snare. The scope was retroflexed in the rectum. No other abnormalities were noted. The scope was straightened and removed. The patient was awakened and brought to recovery. Scope withdrawal time: 13 minutes Sedation time: 21 minutes EBL: 5 mL Findings: 5 mm rectal polyp Post-procedure Follow up: weeks Disposition: PACU
[2022-11-28 09:44] VITALS: BP 94/49; PULSE 88; RESP 13; TEMP 36.3; O2SAT 94
[2022-11-28 09:49] VITALS: BP 107/67; PULSE 86; RESP 21; TEMP 36.3; O2SAT 96
[2022-11-28 09:55] VITALS: BP 133/62; PULSE 84; RESP 14; TEMP 36.4; O2SAT 94
[2022-11-28 10:01] VITALS: BP 130/76; PULSE 75; RESP 16; TEMP 36.4; O2SAT 99
== END 2022-11-28 10:15 | disposition home or self-care (01) ==
PROVIDERS: PCP Family Medicine; Referring Provider Surgery; Visit Provider Surgery
PROC: 0DJD8ZZ Inspection of Lower Intestinal Tract, Via Natural or Artificial Opening Endoscopic (ICD-10-PCS; CPT 45378; principal; 2022-11-28 08:45)
DX: Z12.11 Encounter for screening for malignant neoplasm of colon (principal); K62.1 Rectal polyp
CPT/HCPCS: 45385; J2704

== ENCOUNTER → 2022-12-03 12:53 | Outpatient (CLI) | payer MEDICARE, SELFPAY ==
--- NOTE | 2022-12-03 | DI.MG.S_ITS ---
BILATERAL DIGITAL SCREENING MAMMOGRAM 3D/2D WITH CAD: 12/03/2022 CLINICAL: Routine screening. Comparison is made to exams dated: 10/20/2021 mammogram, 09/23/2020 mammogram, and 09/16/2019 mammogram - [facility]. There are scattered areas of fibroglandular density in both breasts (category b / 25%-50% glandular tissue). Current study was also evaluated with a Computer Aided Detection (CAD) system. No significant masses, calcifications, or other findings are seen in either breast. There has been no significant interval change. IMPRESSION: NEGATIVE There is no mammographic evidence of malignancy. A 1 year screening mammogram is recommended. Based on the Tyrer Cuzick model (a risk assessment model) the patient's lifetime risk is 1.6% and her 10 year risk is 0.0%. According to the ACR, ACS, and NCCN guidelines, an annual breast MRI exam along with mammogram is recommended if the patient's lifetime risk is 20% or greater. This exam was interpreted at Station ID: [id number]. NOTE: For mammograms, a report in lay terms will be sent to the patient. Approximately 15% of breast malignancies will not be visualized mammographically. In the management of a palpable breast mass, a negative mammogram must not discourage biopsy of a clinically suspicious lesion. Electronically Signed By: Arjun Wing M.D., jr/wolf:12/03/2022 14:33:48 letter sent: Normal Exam ACR BI-RADS Category 1: Negative 3341F
== END ==
PROVIDERS: PCP Family Medicine; Referring Provider Family Medicine; Visit Provider Family Medicine
DX: Z12.31 Encounter for screening mammogram for malignant neoplasm of breast (principal)
CPT/HCPCS: 77063; 77067

== ENCOUNTER → 2023-07-31 10:17 | Outpatient (CLI) | payer MEDICARE, SELFPAY ==
[2023-07-31 11:21] LABS: Alanine Aminotransferase 21 IU/L (<35); Albumin 4.1 g/dL (3.5-5.0); Albumin Globulin Ratio 1.8 (1.0-2.8); Alkaline Phosphatase 58 U/L (38-126); Aspartate Aminotransferase 27 IU/L (14-36); BUN Creatinine Ratio 30.6 (6-22); Bilirubin Total 0.6 mg/dL (0.2-1.3); Blood Urea Nitrogen 19 mg/dL (7-17); Calcium 9.9 mg/dL (8.4-10.2); Carbon Dioxide 29 mmol/L (22-32); Chloride 104 mmol/L (98-107); Cholesterol 200 mg/dL (140-199); Estimated Glomerular Filt Rate > 60 mL/min (>60); Globulin 2.3 g/dL (1.7-4.1); Glucose 93 mg/dL (80-110); HDL Cholesterol 64 mg/dL (40-60); HEMOLYSIS < 15 (0-50); LDL Cholesterol Calculated 118 mg/dL (<100); Sodium 137 mmol/L (137-145); Total Protein 6.4 g/dL (6.3-8.2); Triglycerides 90 mg/dL (35-150)
== END ==
PROVIDERS: PCP Family Medicine; Referring Provider Family Medicine; Visit Provider Family Medicine
DX: E78.5 Hyperlipidemia, unspecified (principal)
CPT/HCPCS: 36415; 80053; 80061

== ENCOUNTER → 2023-12-05 14:11 | Outpatient (CLI) | payer MEDICARE, SELFPAY ==
--- NOTE | 2023-12-05 | DI.MG.S_ITS ---
BILATERAL DIGITAL SCREENING MAMMOGRAM 3D/2D WITH CAD: 12/05/2023 CLINICAL: Routine screening. Comparison is made to exams dated: 12/03/2022 mammogram, 10/20/2021 mammogram, and 09/23/2020 mammogram - [facility]. There are scattered areas of fibroglandular density in both breasts (category b / 25%-50% glandular tissue). Current study was also evaluated with a Computer Aided Detection (CAD) system. No significant masses, calcifications, or other findings are seen in either breast. There has been no significant interval change. IMPRESSION: NEGATIVE There is no mammographic evidence of malignancy. A 1 year screening mammogram is recommended. Based on the Tyrer Cuzick model (a risk assessment model) the patient's lifetime risk is 1.4% and her 10 year risk is 0.0%. According to the ACR, ACS, and NCCN guidelines, an annual breast MRI exam along with mammogram is recommended if the patient's lifetime risk is 20% or greater. This exam was interpreted at Station ID: [id number]. NOTE: For mammograms, a report in lay terms will be sent to the patient. Approximately 15% of breast malignancies will not be visualized mammographically. In the management of a palpable breast mass, a negative mammogram must not discourage biopsy of a clinically suspicious lesion. Electronically Signed By: Cary Carpenter M.D., PH.D lan/wolf:12/05/2023 23:36:51 letter sent: Normal Exam ACR BI-RADS Category 1: Negative 3341F
== END ==
LOC: MAMMO 14:11
PROVIDERS: PCP Family Medicine; Referring Provider Family Medicine; Visit Provider Family Medicine
DX: Z12.31 Encounter for screening mammogram for malignant neoplasm of breast (principal); R92.323 Mammographic fibroglandular density, bilateral breasts
CPT/HCPCS: 77063; 77067

== ENCOUNTER → 2024-06-10 08:29 | Outpatient (CLI) | payer MEDICARE, SELFPAY ==
[2024-06-10 09:51] LABS: Influenza A - CEPHEID Flu A NEGATIVE (NEGATIVE); Influenza B - CEPHEID Flu B NEGATIVE (NEGATIVE); Respiratory Syncytial Virus Negative (Negative)
[2024-06-10 10:13] LABS: COVID-19 CEPHEID 4-PLEX PCR Negative (Negative)
== END ==
PROVIDERS: PCP Family Medicine; Visit Provider Nurse Practitioner Family
DX: R52 Pain, unspecified (principal); R53.83 Other fatigue; R05.9 Cough, unspecified
CPT/HCPCS: 0241U

== ENCOUNTER → 2024-06-10 08:42 | Outpatient (CLI) | payer MEDICARE, SELFPAY ==
--- NOTE | 2024-06-10 08:43 | DI.RAD.S_ITS ---
PROCEDURE: XR CHEST 2V INDICATIONS: Cough TECHNIQUE: 2 views of the chest were acquired. COMPARISON: None. FINDINGS: Moderate diffuse bilateral peribronchial thickening and patchy opacities predominantly in the lower lobes raises the suspicion for bronchitis, bronchopneumonia,viral infection or other process. On the lateral image there is blunting of the right costophrenic angle suggests small right pleural effusion or pleural thickening. Moderate degenerate changes of the thoracic spine with mild dextroscoliosis. Moderate bilateral apical pleural thickening/scarring. Mildly prominent candido, pulmonary vessels and/or hilar lymph nodes. Moderate calcifications of the aortic arch. Cardiopericardial silhouette within normal limits. No pneumothorax. IMPRESSION: Moderate bilateral peribronchial thickening and patchy opacities as discussed above. Follow-up is needed. If symptoms persist or worsen, CT chest could be performe.d Small right pleural effusion or pleural thickening. Mildly prominent candido, pulmonary vessels and/or hilar lymph nodes. Dictated by: Vishal Roberson M.D. on 06/10/2024 at 10:09 Approved by: Vishal Roberson M.D. on 06/10/2024 at 10:14
== END ==
PROVIDERS: PCP Family Medicine; Referring Provider Nurse Practitioner Family; Visit Provider Nurse Practitioner Family
DX: J90 Pleural effusion, not elsewhere classified (principal); R05.9 Cough, unspecified; I70.0 Atherosclerosis of aorta
CPT/HCPCS: 0241U; 71046

== ENCOUNTER → 2024-12-25 10:04 | Outpatient (CLI) | payer MEDICARE, SELFPAY ==
--- NOTE | 2024-12-25 10:04 | DI.MG.S_ITS ---
MM screening mammo BI: 12/25/2024. BI-RADS: 1 CLINICAL: 79-year old female for bilateral screening mammogram. Tyrer-Cuzick lifetime risk of 0.7%. No personal or first-degree family history of breast cancer. PRIOR EXAMS 12/05/2023, 12/03/2022, 10/20/2021, 09/23/2020, 09/16/2019, 08/31/2018, 09/03/2017, 08/22/2017, 07/15/2016, 07/03/2015. MAMMOGRAPHY TECHNIQUE: 2D and 3D (tomosynthesis) digital mammographic views obtained, with additional images as needed for full coverage. Current study was also evaluated with a Computer Aided Detection (CAD) system. DENSITY B. There are scattered areas of fibroglandular density. MAMMOGRAPHY FINDINGS Bilateral: No suspicious mass, asymmetry, microcalcification, or other abnormality seen. No significant change from comparison. IMPRESSION: * No evidence of malignancy. RECOMMENDATIONS Bilateral * Annual screening mammography. OVERALL ASSESSMENT CATEGORY BI-RADS-1: Negative. The [employer] recommends annual screening mammography beginning at age 40 for women with average risk of breast cancer. ELECTRONICALLY SIGNED: Nora Rushing M.D. on 12/27/2024 at 09:51:32 AM PT Interpreting Station ID: [id number]
== END ==
LOC: MAMMO 10:04
PROVIDERS: PCP Family Medicine; Referring Provider Family Medicine; Visit Provider Family Medicine
DX: Z12.31 Encounter for screening mammogram for malignant neoplasm of breast (principal)
CPT/HCPCS: 77063; 77067

== ENCOUNTER → 2025-07-26 08:12 | Outpatient (CLI) | payer MEDICARE, SELFPAY ==
--- NOTE | 2025-07-26 08:13 | DI.ECHO.S_ITS ---
[facility] : : [address] : : [place] : : [id number] : : Phone: [phone] Echocardiogram Report + + :Name: VARUN BUCK Study Date: 07/26/2025 Height: 65 in : :[facility] ReadingLocation: Weight: 135 lb : : Gender: Female BSA: 1.7 m2 : :: 1945 Age: 79 yrs BP: 146/71 mmHg: :Reason For Study: Shortness of breath : :Ordering Physician: MARIBEL, : :AALIYAH Performed By: Sandro Clinton : :Referring: AALIYAH LÓPEZ : + + Interpretation Summary The left ventricle is normal in size. Left ventricular systolic function is normal. The ejection fraction is estimated to be 55-60%. There are no focal wall motion abnormalities. Grade I diastolic dysfunction with normal left atrial pressure. The right ventricle is normal in size and function. The right ventricular systolic pressure is estimated to be at least 27 mmHg based on an estimated right atrial pressure of 3 mm Hg. The left atrial size is normal. There is mild to moderate tricuspid regurgitation. The aortic root is normal size. Procedure: A two-dimensional transthoracic echocardiogram with color flow and Doppler was performed. The study quality was technically adequate. There is no prior echocardiogram noted for this patient. The heart rate ranged between 75-79 bpm during the study. Left Ventricle: The left ventricle is normal in size. Left ventricular wall thickness is borderline increased. Left ventricular systolic function is normal. The ejection fraction is estimated to be 55-60%. There are no focal wall motion abnormalities. Grade I diastolic dysfunction with normal left atrial pressure. Right Ventricle: The right ventricle is normal in size and function. Atria: The left atrial size is normal. Right atrial size is normal. There is no Doppler evidence for an interatrial shunt. Mitral Valve: The mitral valve leaflets appear to open well. There is no mitral valve stenosis. There is trace mitral regurgitation. Aortic Valve: The aortic valve is trileaflet. The aortic valve opens well. There is no aortic valve stenosis. No aortic regurgitation is present. Tricuspid Valve: The tricuspid valve leaflets are thin and pliable. There is mild to moderate tricuspid regurgitation. The right ventricular systolic pressure is estimated to be at least 27 mmHg based on an estimated right atrial pressure of 3 mm Hg. Pulmonic Valve: The pulmonic valve is not well seen, but is grossly normal. There is mild pulmonic regurgitation. Great Vessels: The aortic root is normal size. The ascending aorta is normal in size. The aortic arch could not be visualized. The pulmonary artery is normal size. The IVC is of normal diameter and collapses greater than 50% with a sniff. This suggests a low right atrial pressure of 3 mm Hg. Pericardium/ Pleura There is no pericardial effusion. MMode/2D Measurements & Calculations LVIDd: 3.4 cm LVOT diam: 2.0 cm LVIDs: 2.3 cm Ao root diam: 2.9 cm FS: 31.2 % asc Aorta Diam: 3.1 cm IVSd: 1.0 cm LVPWd: 1.0 cm LV loera. diameter/BSA (cm/m^2): 2.0 LV sys. diameter/BSA (cm/m^2): 1.4 LA A2 area: 16.4 cm2 RA long axis: 4.3 cm LA A4 area: 14.6 cm2 RA area: 12.1 cm2 LA length (vol): 4.8 cm RA vol: 28.8 ml LA vol: 42.6 ml RA : 17.2 ml/m2 LA vol index: 25.5 ml/m2 IVC diam: 1.7 cm RVD1 (basal): 2.8 cm RVD2 (mid): 2.4 cm TAPSE: 2.0 cm Doppler Measurements & Calculations Ao V2 max: 125.0 cm/sec LVOT Max [place]: 81.9 cm/sec Ao V2 mean: 90.1 cm/sec LV V1 max P.7 mmHg Ao max P.3 mmHg LV V1 VTI: 18.0 cm Ao mean P.6 mmHg BRIE(I,D): 2.2 cm2 Ao V2 VTI: 25.7 cm BRIE(V,D): 2.0 cm2 sev ratio: 0.70 BRIE indexed to BSA (cm^2/m^2): 1.3 MV E max arcadio: 77.4 cm/sec TR max arcadio: 246.6 cm/sec MV A max arcadio: 90.6 cm/sec TR max P.4 mmHg MV E/A: 0.85 PA V2 max: 115.9 cm/sec MV dec time: 0.20 sec PA V2 mean: 88.4 cm/sec PA mean P.4 mmHg PA pr(Accel): 52.0 mmHg SV(LVOT): 56.1 ml Qp/Qs (V,Ao): 1.0/2.2 Qp/Qs (V,LVOT): 1.5/1.0 Reading Physician:01:30 PM
--- NOTE | 2025-07-26 16:48 | DI.NM.S_ITS ---
DATE OF SERVICE: 07/26/2025 EXERCISE STRESS TEST INDICATIONS: Exertional shortness of breath, chest discomfort. CARDIAC STRESS: The patient underwent exercise stress test under the supervision of an attending staff. She walked on Douglas protocol for 5 minutes and 16 seconds, achieved 7 METS of workload, CYNTHIA -11%, maximum heart rate 130 which was 93% of target heart rate and normal blood pressure response. Initial resting blood pressure 142/80 and peak blood pressure 180/70 mmHg. 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 Poor R- wave progression with almost QS complexes in V1 to V2. Cannot rule out old anterior septal DC with nonspecific ST-T changes. During stress no new convincing EKG changes seen. Intermittent PVCs, which were occasional and PACs with short run of atrial tachycardia without any obvious AFib. No chest pain, however, during exercise, the patient has significant shortness of breath. Oxygen saturation 98% at maximum exertion. Normal recovery. CONCLUSION: Exercise stress test did not reveal any obvious inducible ischemic changes. Decent exercise tolerance. CYNTHIA -11%. 7 METS of workload. The patient is 79 years old. Normal hemodynamic response. However, baseline EKG showed possibility of old lateral wall infarction as well as possibility of old anteroseptal infarction. Intermittent PVCs and PACs and short run of atrial tachycardia without any obvious AFib. No chest pain. The patient has significant shortness of breath during exercise and that time oxygen saturation 98%. Correlate clinically. Consider repeating exercise stress test with imaging modality like perfusion study for further CAD diagnosis and risk stratification as well as 2D echo to make sure there is no significant structural heart disease or diastolic dysfunction. Eli Perryne - [employer]/fn/CHRISTINE doc#: [id number]/job#: [id number] dd: 07/26/2025 16:27:00 dt: 07/26/2025 16:41:00 DICTATING MD/COPIES TO: Bisi Marroquin MD; Dr. Villegas COPIES MNE: JOSE; ; Dr. Villegas
== END ==
LOC: NUCM 08:12
PROVIDERS: PCP Family Medicine; Referring Provider Family Medicine; Visit Provider Family Medicine
DX: I07.1 Rheumatic tricuspid insufficiency (principal); R07.9 Chest pain, unspecified
CPT/HCPCS: 93017; 93306